=== PATIENT | male | born 1955 | race Caucasian/White ===

== ENCOUNTER → 2020-11-05 | Day surgery (SDC) | payer OTHER ==
[~2020-11-05] MED LIST: ADMELOG SO100 UNIT/1 SQ; ASPIRIN EC81 MG PO; CARVEDILOL12.5 MG PO; COREG 12.5MG12.5 MG PO; COZAAR100 MG PO; CREON DR 6,0001 EACH PO; ECOTRIN81 MG PO; FENOFIBRATE160 MG PO; GABAPENTIN100 MG PO; JARDIANCE25 MG PO; LIPITOR40 MG PO; LOSARTAN POTAS100 MG PO; NEURONTIN100 MG PO; NORVASC 5 MG TAB5 MG PO; NORVASC5 MG PO; NOVOLOG100 UNIT/1 SQ; OXYCODONE-ACET1 EAC1 PO; PERCOCET 5-3251 EACH PO; PROTONIX 40 MG40 M1 PO; TRESIBA FL100 UNIT/1 SQ; TRESIBA100 UNIT/1 SQ
== END | disposition home or self-care (01) ==
LOC: OR 06:41
PROVIDERS: Internal Medicine Gastroenterology
PROC: 0DBN8ZX Excision of Sigmoid Colon, Via Natural or Artificial Opening Endoscopic, Diagnostic (ICD-10-PCS; 2020-11-05)
PROC: 0DBP8ZX Excision of Rectum, Via Natural or Artificial Opening Endoscopic, Diagnostic (ICD-10-PCS; principal; 2020-11-05 08:00)
DX: D12.5 Benign neoplasm of sigmoid colon (principal); K62.1 Rectal polyp; K64.1 Second degree hemorrhoids; K21.9 Gastro-esophageal reflux disease without esophagitis; I25.2 Old myocardial infarction; E78.5 Hyperlipidemia, unspecified; I10 Essential (primary) hypertension; E78.00 Pure hypercholesterolemia, unspecified; E11.9 Type 2 diabetes mellitus without complications; Z88.5 Allergy status to narcotic agent; Z87.891 Personal history of nicotine dependence; Z88.0 Allergy status to penicillin; Z88.8 Allergy status to other drugs, medicaments and biological substances; Z79.82 Long term (current) use of aspirin; Z79.4 Long term (current) use of insulin; Z79.899 Other long term (current) drug therapy
CPT/HCPCS: 82962; J2704; J7040